=== PATIENT | male | born 1990 | race Caucasian/White ===

== ENCOUNTER 2017-05-23 14:53 | Emergency (ER) | payer OTHER ==
[2017-05-23 15:06] VITALS: BP 136/78; PULSE 89; RESP 18; TEMP 99
--- NOTE | 2017-05-23 15:23 | ED ---
General Adult HPI - General Chief complaint: Neck Pain/Injury Stated complaint: neck pain Time Seen by Provider: 05/23/17 15:13 Source: patient, RN notes reviewed Mode of arrival: ambulatory Limitations: no limitations - History of Present Illness Initial comments: 26-year-old male presents to the emergency department chief complaint of left- sided neck pain. Patient states he woke up and had some only to left-sided is not worse with movement. Patient states also, the injury. Patient denies any history of this in the past. Patient states he was concerned due to his symptoms. Patient denies any recent fever, chills, shortness of breath, chest pain, back pain, abdominal pain, nausea vomiting, numbness or tingling, dysuria or hematuria, constipation or diarrhea, headaches or visual changes, or any other current symptoms. - Related Data Previous Rx's Medication Instructions Recorded Orphenadrine [Norflex] 100 mg PO Q12H #10 tablet.er 05/23/17 Allergies Allergy/AdvReac Type Severity Reaction Status Date / Time No Known Allergies Allergy Verified 05/23/17 15:08 Review of Systems ROS Statement: Those systems with pertinent positive or pertinent negative responses have been documented in the HPI. ROS Other: All systems not noted in ROS Statement are negative. Past Medical History Additional Past Medical History / Comment(s): migraines History of Any Multi-Drug Resistant Organisms: None Reported Past Surgical History: No Surgical Hx Reported Past Psychological History: No Psychological Hx Reported Smoking Status: Current every day smoker Past Alcohol Use History: None Reported Past Drug Use History: None Reported General Exam Limitations: no limitations General appearance: alert, in no apparent distress Head exam: Present: atraumatic, normocephalic, normal inspection ENT exam: Present: normal exam, mucous membranes moist Neck exam: Present: normal inspection, tenderness (Left lateral), full ROM ( Patient does have pain on some range of motion and no pain on). Absent: meningismus, lymphadenopathy, thyromegaly Respiratory exam: Present: normal lung sounds bilaterally. Absent: respiratory distress, wheezes, rales, rhonchi, stridor Cardiovascular Exam: Present: regular rate, normal rhythm, normal heart sounds. Absent: systolic murmur, diastolic murmur, rubs, gallop, clicks Neurological exam: Present: alert, oriented X3 Psychiatric exam: Present: normal affect, normal mood Skin exam: Present: warm, dry, intact, normal color. Absent: rash Course Vital Signs 05/23/17 15:03 Temperature 99 F Pulse Rate 89 Respiratory 18 Rate Blood Pressure 136/78 O2 Sat by Pulse 100 Oximetry Medical Decision Making - Medical Decision Making 22-year-old male presents to the emergency department with a chief complaint of left-sided neck pain. This patient appears to be suffering from a cervical strain. At this time we discussed heat to the area we did give him a prescription for muscle relaxers. We discussed return parameters and follow- up. Patient is given the plan all questions have been answered. He will be discharged. Disposition Clinical Impression: Strain of neck muscle Disposition: HOME SELF-CARE Condition: Stable Instructions: Cervical Strain (ED) Additional Instructions: Please use medication as discussed. Please follow up with family doctor if symptoms have not improved over the next two days. Please return to the emergency room if your symptoms increase or worsen or for any other concerns. Prescriptions: Orphenadrine [Norflex] 100 mg PO Q12H #10 tablet.er Referrals: Lidia Fields MD [STAFF PHYSICIAN] - 1-2 days Time of Disposition: 15:23
== END 2017-05-23 15:40 | disposition home or self-care (01) ==
LOC: EC 14:53
DX: S16.1XXA Strain of muscle, fascia and tendon at neck level, initial encounter (principal); X58.XXXA Exposure to other specified factors, initial encounter; Y92.003 Bedroom of unspecified non-institutional (private) residence as the place of occurrence of the external cause; F17.200 Nicotine dependence, unspecified, uncomplicated
CPT/HCPCS: 99283

== ENCOUNTER 2017-12-19 06:39 | Emergency (ER) | payer OTHER ==
--- NOTE | 2017-12-19 07:17 | ED ---
General Adult HPI - General Chief complaint: ENT Stated complaint: sore throat Time Seen by Provider: 12/19/17 07:07 Source: patient, RN notes reviewed, old records reviewed Mode of arrival: ambulatory Limitations: no limitations - History of Present Illness Initial comments: 27-year-old male with no significant past medical history presents with a one- day history of nasal congestion and mild sore throat. Patient denies cough. Denies difficulty breathing. Denies nausea vomiting or diarrhea. Denies fever or chills. He does have positive sick contacts with similar symptoms. - Related Data Previous Rx's Medication Instructions Recorded Orphenadrine [Norflex] 100 mg PO Q12H #10 tablet.er 05/23/17 Ibuprofen [Motrin] 600 mg PO Q8HR PRN #24 tab 12/19/17 Loratadine [Claritin] 10 mg PO DAILY #30 tab 12/19/17 Allergies Allergy/AdvReac Type Severity Reaction Status Date / Time No Known Allergies Allergy Verified 12/19/17 06:43 Review of Systems ROS Statement: Those systems with pertinent positive or pertinent negative responses have been documented in the HPI. ROS Other: All systems not noted in ROS Statement are negative. Past Medical History Additional Past Medical History / Comment(s): migraines History of Any Multi-Drug Resistant Organisms: None Reported Past Surgical History: No Surgical Hx Reported Past Psychological History: No Psychological Hx Reported Smoking Status: Current every day smoker Past Alcohol Use History: None Reported Past Drug Use History: None Reported General Exam Limitations: no limitations General appearance: alert, in no apparent distress Head exam: Present: atraumatic, normocephalic Eye exam: Present: normal appearance, PERRL, EOMI ENT exam: Present: other (Mild pharyngeal erythema with cobblestoning, no tonsillar swelling or exudate) Neck exam: Present: normal inspection. Absent: tenderness, meningismus Respiratory exam: Present: normal lung sounds bilaterally. Absent: respiratory distress, wheezes Cardiovascular Exam: Present: regular rate, normal rhythm GI/Abdominal exam: Present: soft. Absent: distended, tenderness Extremities exam: Present: normal inspection, normal capillary refill. Absent: pedal edema Neurological exam: Present: alert, oriented X3. Absent: motor sensory deficit Psychiatric exam: Present: normal affect, normal mood Skin exam: Present: warm, dry, intact. Absent: cyanosis, diaphoretic Course Vital Signs 12/19/17 12/19/17 06:41 07:28 Temperature 97.6 F 98.1 F Pulse Rate 94 87 Respiratory 15 18 Rate Blood Pressure 134/82 136/79 O2 Sat by Pulse 99 97 Oximetry Medical Decision Making - Medical Decision Making 27-year-old male presenting with nasal congestion and mild sore throat. Patient is well-appearing normal vital signs. Mild pharyngeal erythema on exam nasal congestion. Patient's symptoms likely secondary to viral upper respiratory tract infection. He is given Claritin for congestion symptoms and Motrin for sore throat. - Lab Data Lab Results 12/19/17 Range/Units 06:43 Group A Strep Rapid Negative (Negative) Disposition Clinical Impression: Viral URI Disposition: HOME SELF-CARE Condition: Good Instructions: Pharyngitis (ED), Upper Respiratory Infection (ED) Prescriptions: Ibuprofen [Motrin] 600 mg PO Q8HR PRN #24 tab PRN Reason: Pain Loratadine [Claritin] 10 mg PO DAILY #30 tab Referrals: None,Stated [Primary Care Provider] - 1-2 days Luke Riley MD [REFERRING] - 1-2 days Time of Disposition: 07:16
[2017-12-19 07:29] VITALS: BP 136/79; PULSE 87; RESP 18; TEMP 98.1
== END 2017-12-19 07:29 | disposition home or self-care (01) ==
LOC: EC 06:39
DX: J06.9 Acute upper respiratory infection, unspecified (principal); F17.200 Nicotine dependence, unspecified, uncomplicated
CPT/HCPCS: 87081; 87430; 99283

== ENCOUNTER 2018-04-13 14:17 | Emergency (ER) | payer OTHER ==
[2018-04-13 14:23] VITALS: BP 136/88; PULSE 70; RESP 18; TEMP 98.3
--- NOTE | 2018-04-13 15:19 | ED ---
General Adult HPI - General Chief complaint: Dental/Oral Stated complaint: dental pain Time Seen by Provider: 04/13/18 14:34 Source: patient, RN notes reviewed Mode of arrival: ambulatory Limitations: no limitations - History of Present Illness Initial comments: 27-year-old male presents to the emergency department for a chief complaint of toothache times one day. Patient states it began hurting last night. Patient denies any swelling or pain in the neck. Patient denies pain or stiffness in the neck. Patient denies fevers or chills at home. Patient states he has had dental infections before. Patient does not currently have a dentist. Patient states penicillin does not work for him but amoxicillin does. Patient states he lost his Motrin so would like a prescription. Patient has no other complaints at this time including shortness of breath, chest pain, abdominal pain, nausea or vomiting, headache, or visual changes. - Related Data Previous Rx's Medication Instructions Recorded Orphenadrine [Norflex] 100 mg PO Q12H #10 tablet.er 05/23/17 Ibuprofen [Motrin] 600 mg PO Q8HR PRN #24 tab 12/19/17 Loratadine [Claritin] 10 mg PO DAILY #30 tab 12/19/17 Amoxicillin 875 mg PO Q12HR #20 tablet 04/13/18 Ibuprofen [Motrin] 600 mg PO Q6HR PRN #20 tab 04/13/18 Allergies Allergy/AdvReac Type Severity Reaction Status Date / Time No Known Allergies Allergy Verified 04/13/18 14:20 Review of Systems ROS Statement: Those systems with pertinent positive or pertinent negative responses have been documented in the HPI. ROS Other: All systems not noted in ROS Statement are negative. Past Medical History Additional Past Medical History / Comment(s): migraines History of Any Multi-Drug Resistant Organisms: None Reported Past Surgical History: No Surgical Hx Reported Past Psychological History: No Psychological Hx Reported Smoking Status: Current every day smoker Past Alcohol Use History: None Reported Past Drug Use History: None Reported General Exam Limitations: no limitations General appearance: alert, in no apparent distress Head exam: Present: atraumatic, normocephalic, normal inspection Eye exam: Present: normal appearance, PERRL, EOMI. Absent: scleral icterus, conjunctival injection, periorbital swelling ENT exam: Present: normal exam, mucous membranes moist, TM's normal bilaterally , normal external ear exam. Absent: normal oropharynx (Patient has a fractured tooth 31. No abscess noted that can be drained. No swelling of the jaw or neck.) Neck exam: Present: normal inspection, full ROM. Absent: tenderness, meningismus, lymphadenopathy Respiratory exam: Present: normal lung sounds bilaterally. Absent: respiratory distress, wheezes, rales, rhonchi, stridor Cardiovascular Exam: Present: regular rate, normal rhythm, normal heart sounds. Absent: systolic murmur, diastolic murmur, rubs, gallop, clicks Course Vital Signs 04/13/18 14:20 Temperature 98.3 F Pulse Rate 70 Respiratory 18 Rate Blood Pressure 136/88 O2 Sat by Pulse 99 Oximetry Medical Decision Making - Medical Decision Making 27-year-old male presents to the emergency determine for a chief complaint of tooth pain times one day. Patient denies swelling in the jaw or stiffness in the neck. Patient denies fevers or chills at home. Patient has not tried anything for pain. Patient does not currently have a dentist. Patient has had tooth infections before and states amoxicillin works better than penicillin for him. Patient lost his Motrin prescription and would like Motrin. On exam patient is a fractured tooth 31. No drainable abscess identified. Patient is afebrile in the emergency department. No swelling or redness in the jaw or neck. Patient has full range of motion of the neck. Patient was given a prescription for amoxicillin and ibuprofen. He was given the number to the [facility]. He will follow up with a primary care provider which was referred to him. He will return to the emergency department if he has worsening symptoms including fever or swelling in the throat or jaw which he is aware of. Disposition Clinical Impression: Dental infection Disposition: HOME SELF-CARE Condition: Good Instructions: Dental Abscess (ED), Toothache (ED) Additional Instructions: Please take Motrin for pain. Please take antibiotic as directed. You may use ice over the area. Follow-up with primary care in 1-2 days. Follow-up with dentist as soon as possible. If you have any worsening symptoms or develop fever return to the emergency department. [facility] dental: [address] [place] [address], [place], [id number]. Prescriptions: Amoxicillin 875 mg PO Q12HR #20 tablet Ibuprofen [Motrin] 600 mg PO Q6HR PRN #20 tab PRN Reason: Pain Is patient prescribed a controlled substance at d/c from ED?: No Referrals: Kings Gupta MD [STAFF PHYSICIAN] - 1-2 days Time of Disposition: 15:17
== END 2018-04-13 15:26 | disposition home or self-care (01) ==
LOC: EC 14:17
DX: K04.7 Periapical abscess without sinus (principal); S02.5XXA Fracture of tooth (traumatic), initial encounter for closed fracture; F17.200 Nicotine dependence, unspecified, uncomplicated; X58.XXXA Exposure to other specified factors, initial encounter
CPT/HCPCS: 99282

== ENCOUNTER 2018-10-29 20:18 | Emergency (ER) | payer OTHER ==
[2018-10-29 20:22] VITALS: RESP 18
--- NOTE | 2018-10-29 20:58 | XR ---
EXAMINATION TYPE: XR chest 2V DATE OF EXAM: 10/29/2018 COMPARISON: 04/15/2015 HISTORY: Cough TECHNIQUE: Frontal and lateral views of the chest are obtained. FINDINGS: Heart and mediastinum are normal. Lungs are clear. Diaphragm is normal. Bony thorax appear s normal. IMPRESSION: Normal chest. No change.
[2018-10-29] MEDS ORDERED: predniSONE 20 MG TAB PO STA (21:18)
--- NOTE | 2018-10-29 21:20 | ED ---
General Adult HPI - General Chief complaint: Upper Respiratory Infection Stated complaint: congestion Time Seen by Provider: 10/29/18 20:24 Source: patient, RN notes reviewed Mode of arrival: ambulatory Limitations: no limitations - History of Present Illness Initial comments: 28-year-old male presents to the emergency department for a chief complaint of cough and congestion times one week. Patient states cough is productive. He states he is coughing up clear sputum. He also states he has nasal congestion. He denies fevers or chills. He does admit to smoking. He denies history of asthma. He denies any significant shortness of breath. No chest pain.Patient has no other complaints at this time including abdominal pain, nausea or vomiting, headache, or visual changes. - Related Data Previous Rx's Medication Instructions Recorded Orphenadrine [Norflex] 100 mg PO Q12H #10 tablet.er 05/23/17 Ibuprofen [Motrin] 600 mg PO Q8HR PRN #24 tab 12/19/17 Loratadine [Claritin] 10 mg PO DAILY #30 tab 12/19/17 Amoxicillin 875 mg PO Q12HR #20 tablet 04/13/18 Ibuprofen [Motrin] 600 mg PO Q6HR PRN #20 tab 04/13/18 Albuterol Inhaler [Ventolin Hfa 1 - 2 puff INHALATION Q6HR PRN #1 10/29/18 Inhaler] inhaler guaiFENesin-DM 600/30MG [Mucinex 1 each PO Q12HR #20 tab.er.12h 10/29/18 Dm] predniSONE 50 mg PO DAILY #5 tablet 10/29/18 Allergies Allergy/AdvReac Type Severity Reaction Status Date / Time No Known Allergies Allergy Verified 04/13/18 14:20 Review of Systems ROS Statement: Those systems with pertinent positive or pertinent negative responses have been documented in the HPI. ROS Other: All systems not noted in ROS Statement are negative. Past Medical History Additional Past Medical History / Comment(s): migraines History of Any Multi-Drug Resistant Organisms: None Reported Past Surgical History: No Surgical Hx Reported Past Psychological History: No Psychological Hx Reported Smoking Status: Current every day smoker Past Alcohol Use History: None Reported Past Drug Use History: None Reported General Exam Limitations: no limitations General appearance: alert, in no apparent distress Head exam: Present: atraumatic, normocephalic, normal inspection Eye exam: Present: normal appearance, PERRL, EOMI. Absent: scleral icterus, conjunctival injection, periorbital swelling ENT exam: Present: normal exam, normal oropharynx, mucous membranes moist, TM's normal bilaterally, normal external ear exam. Absent: other (No tenderness noted of frontal or maxillary sinuses) Neck exam: Present: normal inspection, full ROM. Absent: tenderness, meningismus, lymphadenopathy Respiratory exam: Present: wheezes (Wheezing noted bilaterally). Absent: respiratory distress, rales, rhonchi, stridor, decreased breath sounds Cardiovascular Exam: Present: regular rate, normal rhythm, normal heart sounds. Absent: systolic murmur, diastolic murmur, rubs, gallop, clicks Neurological exam: Present: alert, oriented X3, CN II-XII intact Psychiatric exam: Present: normal affect, normal mood Course Vital Signs 10/29/18 20:19 Temperature 98 F Pulse Rate 71 Respiratory 18 Rate Blood Pressure 146/87 O2 Sat by Pulse 100 Oximetry Medical Decision Making - Medical Decision Making 28-year-old male presents to the emergency department for a chief complaint of congestion and cough times one week. Patient has been coughing up phlegm. Patient is a smoker, discussed smoking cessation for 3.1 minutes. Patient denies shortness of breath or chest pain. Vitals are within acceptable limits, patient is 100% on room air, no respiratory distress. Wheezing noted throughout lung nevarez. Chest x-ray shows a normal chest, no change. At this time patient given steroid, Mucinex, and albuterol inhaler. He will follow up with primary care. He will return here if he has any worsening symptoms or develops a fever. Disposition Clinical Impression: Upper respiratory infection Disposition: HOME SELF-CARE Condition: Good Instructions: Upper Respiratory Infection (ED) Additional Instructions: Please take prescriptions as directed. Follow up with primary care in 1-2 days. Return to the emergency department if he developed worsening symptoms or fever. Prescriptions: Albuterol Inhaler [Ventolin Hfa Inhaler] 1 - 2 puff INHALATION Q6HR PRN #1 inhaler PRN Reason: Shortness Of Breath guaiFENesin-DM 600/30MG [Mucinex Dm] 1 each PO Q12HR #20 tab.er.12h predniSONE 50 mg PO DAILY #5 tablet Is patient prescribed a controlled substance at d/c from ED?: No Referrals: Dundy,Lidia, MD [STAFF PHYSICIAN] - 1-2 days Time of Disposition: 21:20
[2018-10-29 21:29] VITALS: BP 147/83; PULSE 74; TEMP 97
== END 2018-10-29 21:26 | disposition home or self-care (01) ==
LOC: EC 20:18
DX: J06.9 Acute upper respiratory infection, unspecified (principal); F17.200 Nicotine dependence, unspecified, uncomplicated
CPT/HCPCS: 71046; 99283; J7512

== ENCOUNTER → 2020-08-09 | Outpatient (CLI) | payer OTHER | END | disposition home or self-care (01) | LOC: LABWHC1 14:55 | PROVIDERS: ATTEND Emergency Medicine | DX: Z20.828 Contact with and (suspected) exposure to other viral communicable diseases (principal) | CPT/HCPCS: U0003; C9803 ==